=== PATIENT | female | born 1980 | race Caucasian/White ===

== ENCOUNTER 2018-08-31 00:53 | Emergency (ER) | payer OTHER ==
[2018-08-31 01:00] VITALS: RESP 18
[2018-08-31] MEDS ORDERED: SODIUM CHLORIDE 0.9% 1,000 ML IV ONE (01:26)
[2018-08-31] MEDS ORDERED: KETOROLAC 30 MG/ML 1 ML VIAL IVP STA (01:27)
[2018-08-31] MEDS ORDERED: LORazepam 1 MG TAB PO STA (01:43)
--- NOTE | 2018-08-31 02:29 | ED ---
Eye Problem HPI - General Chief complaint: Eye Problems Stated complaint: Vision Changes Time Seen by Provider: 08/31/18 01:14 Source: patient Mode of arrival: ambulatory Limitations: no limitations - History of Present Illness Initial comments: 38-year-old female patient presents to the emergency department today for evaluation of headache and confusion. Patient states that around 11:30 this evening she was reading something on Facebook when she started to being unable to comprehend what she was reading. Patient states that she could see the letters however she cannot make out what they meant. States that she has had ocular migraines in the past but her symptoms were different than this. Patient states he previously she had visual field disturbance however she denies having that with this headache. Patient states that the headache was a pressure behind her eyes. States that this started to resolve. States that she was nauseated but did not vomit. Patient states she has been having anxiety attacks and does feel somewhat anxious this evening. She denies any chest pain, shortness of breath, numbness, tingling, weakness or tremors. Denies any chance of . Denies any use of alcohol or drugs. Patient denies any recent rash, abdominal pain, diarrhea, constipation, back pain, hematuria, dysuria, urinary urgency, urinary frequency, headache, visual changes , or any other complaints. - Related Data Allergies Allergy/AdvReac Type Severity Reaction Status Date / Time No Known Allergies Allergy Verified 08/31/18 01:00 Review of Systems ROS Statement: Those systems with pertinent positive or pertinent negative responses have been documented in the HPI. ROS Other: All systems not noted in ROS Statement are negative. Past Medical History Past Medical History: No Reported History History of Any Multi-Drug Resistant Organisms: None Reported Past Surgical History: No Surgical Hx Reported Past Psychological History: Anxiety Smoking Status: Current every day smoker Past Alcohol Use History: None Reported, Occasional Past Drug Use History: None Reported General Exam Limitations: no limitations General appearance: alert, in no apparent distress, anxious, other (This is a well-developed, well-nourished adult female patient in no acute distress. Vital signs upon presentation are temperature 98.3F, pulse 66, respirations 18 , blood pressure 152/81, pulse ox 100% on room air.) Eye exam: Present: normal appearance, PERRL, EOMI. Absent: scleral icterus, conjunctival injection, periorbital swelling ENT exam: Present: normal exam, normal oropharynx, mucous membranes moist Respiratory exam: Present: normal lung sounds bilaterally. Absent: respiratory distress, wheezes, rales, rhonchi, stridor Cardiovascular Exam: Present: normal rhythm, tachycardia, normal heart sounds. Absent: systolic murmur, diastolic murmur, rubs, gallop, clicks GI/Abdominal exam: Present: soft, normal bowel sounds. Absent: distended, tenderness, guarding, rebound, rigid Neurological exam: Present: alert, oriented X3, CN II-XII intact Expanded Speech: Present: fluid speech Cranial nerves: EOM's Intact: Normal, Tongue Deviation: Normal, Nystagmus: Normal Cerebellar function: Finger to Nose: Normal Motor strength exam: RUE: 5, LUE: 5, RLE: 5, LLE: 5 Psychiatric exam: Present: normal affect, normal mood Skin exam: Present: warm, dry, intact, normal color. Absent: rash Course Vital Signs 08/31/18 00:57 Temperature 98.3 F Pulse Rate 66 Respiratory 18 Rate Blood Pressure 152/81 O2 Sat by Pulse 100 Oximetry Medical Decision Making - Lab Data Result diagrams: 08/31/18 02:00 08/31/18 02:00 Lab Results 08/31/18 08/31/18 08/31/18 Range/Units 02:00 02:00 02:00 WBC 8.0 (3.8-10.6) k/uL RBC 5.42 H (3.80-5.40) m/uL Hgb 12.6 (11.4-16.0) gm/dL Hct 40.7 (34.0-46.0) % MCV 75.2 L (80.0-100.0) fL MCH 23.2 L (25.0-35.0) pg MCHC 30.9 L (31.0-37.0) g/dL RDW 15.5 (11.5-15.5) % Plt Count 308 (150-450) k/uL Neutrophils % 59 % Lymphocytes % 31 % Monocytes % 6 % Eosinophils % 2 % Basophils % 0 % Neutrophils # 4.7 (1.3-7.7) k/uL Lymphocytes # 2.5 (1.0-4.8) k/uL Monocytes # 0.4 (0-1.0) k/uL Eosinophils # 0.2 (0-0.7) k/uL Basophils # 0.0 (0-0.2) k/uL Hypochromasia Moderate Microcytosis Slight Sodium 140 (137-145) mmol/L Potassium 4.5 (3.5-5.1) mmol/L Chloride 106 (98-107) mmol/L Carbon Dioxide 27 (22-30) mmol/L Anion Gap 7 mmol/L BUN 13 (7-17) mg/dL Creatinine 0.60 (0.52-1.04) mg/dL Est GFR (CKD-EPI)AfAm >90 (>60 ml/min/1.73 sqM) Est GFR (CKD-EPI)NonAf >90 (>60 ml/min/1.73 sqM) Glucose 90 (74-99) mg/dL Calcium 9.3 (8.4-10.2) mg/dL Total Bilirubin 0.3 (0.2-1.3) mg/dL AST 22 (14-36) U/L ALT 24 (9-52) U/L Alkaline Phosphatase 50 (38-126) U/L Total Creatine Kinase 50 (30-135) U/L CK-MB (CK-2) 0.4 (0.0-2.4) ng/mL CK-MB (CK-2) Rel Index 0.8 Troponin I <0.012 (0.000-0.034) ng/mL Total Protein 6.7 (6.3-8.2) g/dL Albumin 4.0 (3.5-5.0) g/dL Urine Color Urine Appearance (Clear) Urine pH (5.0-8.0) Ur Specific [place] (1.001-1.035) Urine Protein (Negative) Urine Glucose (UA) (Negative) Urine Ketones (Negative) Urine Blood (Negative) Urine Nitrite (Negative) Urine Bilirubin (Negative) Urine Urobilinogen (<2.0) mg/dL Ur Leukocyte Esterase (Negative) Urine HCG, Qual (Not Detectd) Urine Opiates Screen (NotDetected) Ur Oxycodone Screen (NotDetected) Urine Methadone Screen (NotDetected) Ur Propoxyphene Screen (NotDetected) Ur Barbiturates Screen (NotDetected) U Tricyclic Antidepress (NotDetected) Ur Phencyclidine Scrn (NotDetected) Ur Amphetamines Screen (NotDetected) U Methamphetamines Scrn (NotDetected) U Benzodiazepines Scrn (NotDetected) Urine Cocaine Screen (NotDetected) U Marijuana (THC) Screen (NotDetected) 08/31/18 08/31/18 Range/Units 02:00 02:00 WBC (3.8-10.6) k/uL RBC (3.80-5.40) m/uL Hgb (11.4-16.0) gm/dL Hct (34.0-46.0) % MCV (80.0-100.0) fL MCH (25.0-35.0) pg MCHC (31.0-37.0) g/dL RDW (11.5-15.5) % Plt Count (150-450) k/uL Neutrophils % % Lymphocytes % % Monocytes % % Eosinophils % % Basophils % % Neutrophils # (1.3-7.7) k/uL Lymphocytes # (1.0-4.8) k/uL Monocytes # (0-1.0) k/uL Eosinophils # (0-0.7) k/uL Basophils # (0-0.2) k/uL Hypochromasia Microcytosis Sodium (137-145) mmol/L Potassium (3.5-5.1) mmol/L Chloride (98-107) mmol/L Carbon Dioxide (22-30) mmol/L Anion Gap mmol/L BUN (7-17) mg/dL Creatinine (0.52-1.04) mg/dL Est GFR (CKD-EPI)AfAm (>60 ml/min/1.73 sqM) Est GFR (CKD-EPI)NonAf (>60 ml/min/1.73 sqM) Glucose (74-99) mg/dL Calcium (8.4-10.2) mg/dL Total Bilirubin (0.2-1.3) mg/dL AST (14-36) U/L ALT (9-52) U/L Alkaline Phosphatase (38-126) U/L Total Creatine Kinase (30-135) U/L CK-MB (CK-2) (0.0-2.4) ng/mL CK-MB (CK-2) Rel Index Troponin I (0.000-0.034) ng/mL Total Protein (6.3-8.2) g/dL Albumin (3.5-5.0) g/dL Urine Color Colorless Urine Appearance Clear (Clear) Urine pH 7.0 (5.0-8.0) Ur Specific [place] 1.007 (1.001-1.035) Urine Protein Negative (Negative) Urine Glucose (UA) Negative (Negative) Urine Ketones Negative (Negative) Urine Blood Negative (Negative) Urine Nitrite Negative (Negative) Urine Bilirubin Negative (Negative) Urine Urobilinogen <2.0 (<2.0) mg/dL Ur Leukocyte Esterase Negative (Negative) Urine HCG, Qual Not Detected (Not Detectd) Urine Opiates Screen Not Detected (NotDetected) Ur Oxycodone Screen Not Detected (NotDetected) Urine Methadone Screen Not Detected (NotDetected) Ur Propoxyphene Screen Not Detected (NotDetected) Ur Barbiturates Screen Not Detected (NotDetected) U Tricyclic Antidepress Not Detected (NotDetected) Ur Phencyclidine Scrn Not Detected (NotDetected) Ur Amphetamines Screen Not Detected (NotDetected) U Methamphetamines Scrn Not Detected (NotDetected) U Benzodiazepines Scrn Not Detected (NotDetected) Urine Cocaine Screen Not Detected (NotDetected) U Marijuana (THC) Screen Not Detected (NotDetected) - EKG Data -: EKG Interpreted by Me EKG Comments: EKG obtained at 03 100 so sinus bradycardia with a ventricular rate of 51, LA interval 190, QRS duration 94, QTC 454, QTC 418. No evidence of ST elevation or depression. - Radiology Data Radiology results: report reviewed, image reviewed CT of the head without contrast was obtained. Report was reviewed in its entirety. Impression by Dr. Renteria shows no acute intracranial process identified. Disposition Clinical Impression: Headache Disposition: HOME SELF-CARE Condition: Good Instructions (If sedation given, give patient instructions): Acute Headache (ED ) Additional Instructions: Follow-up with neurologist for further evaluation. Follow up with your primary care physician for recheck in 1-2 days. Return to the emergency department for any new, worsening, or concerning symptoms. Is patient prescribed a controlled substance at d/c from ED?: No Referrals: Willem Mackey MD [Primary Care Provider] - 1-2 days Zo Kirby MD [Medical Doctor] - 1-2 days Time of Disposition: 04:25
--- NOTE | 2018-08-31 02:41 | CT ---
EXAM: CT Head Without Intravenous Contrast CLINICAL HISTORY: altered mental status TECHNIQUE: Axial computed tomography images of the head/brain without intravenous contrast. CTDI is 49.1 mGy and DLP is 1209.4 mGy-cm. This CT exam was performed using one or more of the following dose reduction techniques: automated exposure control, adjustment of the mA and/or kV according to patient size, and/or use of iterative reconstruction technique. COMPARISON: No relevant prior studies available. FINDINGS: Brain: Unremarkable. No hemorrhage. No significant white matter disease. No edema. Ventricles: Unremarkable. No ventriculomegaly. Bones/joints: There is incidental benign-appearing hypertrophic changes involving the calvarium adjacent to the coronal suture at the midline anterior vertex. No acute fracture. Soft tissues: Unremarkable. Sinuses: Minimal mucosal thickening or small retention cyst or polyp involving the inferior medial right maxillary sinus is partially visualized a retention cyst or polyp is noted involving the anterior right maxillary sinus. The paranasal sinuses are otherwise unremarkable. Mastoid air cells: Unremarkable as visualized. No mastoid effusion. IMPRESSION: No acute intracranial process identified.
[2018-08-31 03:48] LABS: Appearance,Urine Clear (Clear); Bilirubin,Urine Negative (Negative); Blood,Urine Negative (Negative); Color,Urine Colorless; Glucose,Urine (UA) Negative (Negative); Ketones,Urine Negative (Negative); Leukocyte Esterase,Urine Negative (Negative); Nitrite,Urine Negative (Negative); Protein,Urine Negative (Negative); Specific Gravity,Urine 1.007 (1.001-1.035); Urobilinogen,Urine <2.0 mg/dL (<2.0)
[2018-08-31 03:49] LABS: Basophils % (A) 0 %; Eosinophils # (A) 0.2 k/uL (0-0.7); Eosinophils % (A) 2 %; HCT 40.7 % (34.0-46.0); HGB 12.6 gm/dL (11.4-16.0); Hypochromasia Moderate; Lymphocytes # (A) 2.5 k/uL (1.0-4.8); Lymphocytes % (A) 31 %; MCH 23.2 pg (25.0-35.0); MCHC 30.9 g/dL (31.0-37.0); MCV 75.2 fL (80.0-100.0); Mean Platelet Volume 6.3; Microcytosis Slight; Monocytes # (A) 0.4 k/uL (0-1.0); Monocytes % (A) 6 %; Neutrophils # (A) 4.7 k/uL (1.3-7.7); Neutrophils % (A) 59 %; Platelet Count 308 k/uL (150-450); RBC 5.42 m/uL (3.80-5.40); RDW 15.5 % (11.5-15.5)
[2018-08-31 03:58] LABS: ALT 24 U/L (9-52); AST 22 U/L (14-36); Alkaline Phosphatase 50 U/L (38-126); Anion Gap 7 mmol/L; Blood Urea Nitrogen 13 mg/dL (7-17); Calcium 9.3 mg/dL (8.4-10.2); Carbon Dioxide 27 mmol/L (22-30); Chloride 106 mmol/L (98-107); Glucose 90 mg/dL (74-99); Potassium 4.5 mmol/L (3.5-5.1); Sodium 140 mmol/L (137-145); Total Bilirubin 0.3 mg/dL (0.2-1.3); Total Protein 6.7 g/dL (6.3-8.2)
[2018-08-31 04:07] LABS: Amphetamine Screen,Urine Not Detected (NotDetected); Barbiturate Screen,Urine Not Detected (NotDetected); Benzodiazepines Screen,Urine Not Detected (NotDetected); Cocaine Screen,Urine Not Detected (NotDetected); Methadone Screen, Urine Not Detected (NotDetected); Opiate Screen,Urine Not Detected (NotDetected); Oxycodone Screen, Urine Not Detected (NotDetected); Phencyclidine Screen,Urine Not Detected (NotDetected); Tricyclic Antidepressant,Urine Not Detected (NotDetected); Urn Cannabinoid Scrn Not Detected (NotDetected)
[2018-08-31 04:09] LABS: Creatine Kinase 50 U/L (30-135)
[2018-08-31 04:22] LABS: Creatine Kinase MB 0.4 ng/mL (0.0-2.4); Troponin I <0.012 ng/mL (0.000-0.034)
[2018-08-31 04:44] VITALS: BP 128/91; PULSE 52; TEMP 98.5
== END 2018-08-31 04:33 | disposition home or self-care (01) ==
LOC: EC 00:53
DX: R51 Headache (principal); F41.9 Anxiety disorder, unspecified; R41.0 Disorientation, unspecified; H53.9 Unspecified visual disturbance; F17.200 Nicotine dependence, unspecified, uncomplicated; Z86.69 Personal history of other diseases of the nervous system and sense organs
CPT/HCPCS: 36415; 93005; 80053; 82550; 82553; 84484; 85025; 81003; 81025; 80306; 70450; 99284; 96374; 96361 ×2; J1885

== ENCOUNTER → 2021-04-22 | Outpatient (CLI) | payer OTHER ==
--- NOTE | 2021-04-22 11:32 | XR ---
EXAMINATION TYPE: XR ankle limited RT, XR foot limited RT DATE OF EXAM: 04/22/2021 CLINICAL HISTORY: Pain after fall injury TECHNIQUE: Frontal and lateral images of the right ankle and foot are obtained. COMPARISON: None. FINDINGS: There is no acute fracture/dislocation evident in the right ankle. The ankle mortise appe ars within normal limits. Moderate size inferior calcaneal spur is present. The overlying soft tissue appears unremarkable. There is no acute fracture or dislocation evident in the right foot. The joint spaces in the right f oot are preserved. Overlying soft tissue is unremarkable. IMPRESSION: There is no acute fracture or dislocation in the right ankle or foot.
== END | disposition home or self-care (01) ==
LOC: RADXRMAIN 11:12
PROVIDERS: ATTEND Internal Medicine
DX: M25.571 Pain in right ankle and joints of right foot (principal); M79.671 Pain in right foot; S99.911A Unspecified injury of right ankle, initial encounter; S99.921A Unspecified injury of right foot, initial encounter

== ENCOUNTER 2021-09-18 23:09 | Emergency (ER) | payer OTHER ==
[2021-09-18 23:16] VITALS: BP 127/83; PULSE 58; RESP 18; TEMP 98.8
--- NOTE | 2021-09-18 23:37 | XR ---
EXAMINATION TYPE: XR hand complete RT DATE OF EXAM: 09/18/2021 COMPARISON: NONE HISTORY: Thumb injury. Pain TECHNIQUE: 3 view FINDINGS: Metacarpals are intact. Carpal bones are intact. I see no fracture nor dislocation. The yoni mb appears intact. IMPRESSION: Negative right hand exam. No fracture.
--- NOTE | 2021-09-18 23:45 | ED ---
Upper Extremity HPI - General Chief Complaint: Extremity Injury, Upper Stated Complaint: thumb injury Time Seen by Provider: 09/18/21 23:20 Source: patient, RN notes reviewed Mode of arrival: ambulatory Limitations: no limitations - History of Present Illness Initial Comments: This is a pleasant, [id number] 41-year-old female who injured her right thumb when she was walking up stairs earlier tonight. Patient states she tripped forward handout. She ended up bending her right thumb backwards. Patient complaining of pain near the first metacarpal phalangeal joint area. No paresthesias. No other injuries. No distal or proximal abnormalities. Patient actually stating that the pain is not bad and she isn't moving it or the area is palpated. Rest alleviates the pain. No radiation. No headache, no fever or chills, no changes in vision or hearing, no sore throat or difficulty with speech, no neck pain, no chest pain or shortness of breath, no abdominal pain, no nausea or vomiting, no changes in urination or bowel movements, no numbness or tingling, , no skin rashes or lesions. MD Complaint: Injury to:: right - Related Data Previous Rx's Medication Instructions Recorded Acetaminophen [Tylenol] 500 mg PO Q4-6H PRN #24 tab 09/18/21 Allergies Allergy/AdvReac Type Severity Reaction Status Date / Time No Known Allergies Allergy Verified 09/18/21 23:16 Review of Systems ROS Statement: Those systems with pertinent positive or pertinent negative responses have been documented in the HPI. ROS Other: All systems not noted in ROS Statement are negative. Past Medical History Past Medical History: No Reported History History of Any Multi-Drug Resistant Organisms: None Reported Past Surgical History: No Surgical Hx Reported Past Psychological History: Anxiety Smoking Status: Never smoker Past Alcohol Use History: Occasional Past Drug Use History: None Reported General Exam - General Exam Comments Initial Comments: Healthy 41-year-old female in no distress Limitations: no limitations General appearance: alert, in no apparent distress Head exam: Present: atraumatic, normocephalic, normal inspection Eye exam: Present: normal appearance, EOMI ENT exam: Present: normal exam Neck exam: Present: normal inspection, full ROM Respiratory exam: Present: normal lung sounds bilaterally. Absent: respiratory distress, wheezes, rales, rhonchi, stridor Cardiovascular Exam: Present: regular rate, normal rhythm, normal heart sounds. Absent: systolic murmur, diastolic murmur, rubs, gallop, clicks Right Hand Wrist exam: Present: normal inspection, full ROM, tenderness, other (Patient has tenderness in ligament laxity to the ulnar collateral ligament of the first MCP joint. No break in skin integrity. No erythema. No crepitus.). Absent: swelling, abrasion, laceration, ecchymosis, deformity, crepitus, dislocation, erythema, amputation, nail avulsion, subungual hematoma Neuro motor exam: Present: wrist extension intact, thumb opposition intact, thumb IP flexion intact, thumb adduction intact, fingers 2-5 abduction intact Neurosensory exam: Present: 2-point discrimination, radial nerve intact Vascular: Present: normal capillary refill. Absent: vascular compromise, Pallo, pulse deficit radial art, pulse deficit ulnar art Course Vital Signs 09/18/21 23:14 Temperature 98.8 F Pulse Rate 58 L Respiratory 18 Rate Blood Pressure 127/83 O2 Sat by Pulse 99 Oximetry Procedures - Orthopedic Splinting/Casting Injury #1 Side: right Upper Extremity Immobilizer: thumb spica (Right thumb, OCL) Additional Comments: Right thumb spica splint, applied by me, distal neurovascular status intact both pre-and post-application. Medical Decision Making - Medical Decision Making Patient presents symptomology consistent with a gamekeeper's thumb on the right hand. Ligament laxity noted. No evidence of osseous abnormality on x-ray as read by me. Thumb spica splint applied. Orthopedic follow-up given. Patient was in no pain after splinting. Neurovascular status intact. Discussed treatment plan. Discussed follow-up. All questions answered. Patient was told to return to the ER for any signs or symptoms worsen. Told to return immediately if any other problems arise. All questions answered. Treatment plan discussed. Patient in agreement Every effort has been made to ensure accuracy of this dictation. However, due to the limitations of electronic medical records and dictation devices, errors in charting still occur. Disposition Clinical Impression: Gamekeeper's thumb of right hand Disposition: HOME SELF-CARE Condition: Good Instructions (If sedation given, give patient instructions): Splint Care (ED), Hand Sprain (ED) Additional Instructions: Follow-up with the hand surgeon as directed, call in the morning for an appointment. Follow-up with your regular physician as directed. Return to the ER immediately if any symptoms worsen, new symptoms arise, or any other problems develop. Keep the splint on until orthopedic follow-up. Use paht-[id number] acetaminophen as needed for pain control. Prescriptions: Acetaminophen [Tylenol] 500 mg PO Q4-6H PRN #24 tab PRN Reason: Pain Is patient prescribed a controlled substance at d/c from ED?: No Referrals: Jeff Anthony DO [Doctor of Osteopathic Medicine] - 1-2 days Time of Disposition: 23:45
== END 2021-09-19 00:27 | disposition home or self-care (01) ==
LOC: EC 23:09
DX: S63.641A Sprain of metacarpophalangeal joint of right thumb, initial encounter (principal); W01.0XXA Fall on same level from slipping, tripping and stumbling without subsequent striking against object, initial encounter
CPT/HCPCS: 29125; 99284

== ENCOUNTER → 2021-10-03 | Outpatient (CLI) | payer OTHER ==
--- NOTE | 2021-10-08 13:31 | MM ---
Reason for exam: screening (asymptomatic). Last mammogram was performed 8 years and 2 months ago. History: Patient is postmenopausal. Benign left mammotome panel of the left breast, August 26, 2013. Took hormonal contraceptives beginning at age 33. Physical Findings: A clinical breast exam by your physician is recommended on an annual basis and results should be correlated with mammographic findings. MG Screening Mammo w CAD Bilateral CC and MLO view(s) were taken. Prior study comparison: August 10, 2013, [facility] DIGITAL LEFT BREAST MAMMOGRAM w/CAD. July 08, 2013, bilateral digital screening mammo w/CAD. There are scattered fibroglandular densities. There are benign appearing round calcifications in the left breast. Previous mammotome biopsy in the left breast at chronic nodularity. There is no new dominant lesion. ASSESSMENT: Benign, BI-RAD 2 RECOMMENDATION: Routine screening mammogram of both breasts in 1 year.
== END | disposition home or self-care (01) ==
LOC: RADMAMWWP 09:12
PROVIDERS: ATTEND Internal Medicine
DX: Z12.31 Encounter for screening mammogram for malignant neoplasm of breast (principal); Z78.0 Asymptomatic menopausal state
CPT/HCPCS: 77067

== ENCOUNTER → 2021-10-11 | Outpatient (CLI) | payer OTHER ==
--- NOTE | 2021-10-12 02:16 | MR ---
EXAMINATION TYPE: MR hand RT wo con DATE OF EXAM: 10/11/2021 COMPARISON: None HISTORY: Rt thumb pain/injury. Multiplanar multiecho imaging of the right hand without contrast. The metacarpals are intact. Phalanges appear intact. I see no fracture. No evidence of any bone edema . There is a small degenerative cyst in the distal scaphoid. Small degenerative cyst in the proximal trapezium. The first carpometacarpal joint is intact. There is mild subcutaneous edema around the pro ximal phalanx of the thumb. There is mild edema also around the head of the first metacarpal. Flexor tendon of the thumb appears intact. IMPRESSION: Mild soft tissue edema around the thumb. No fracture seen. No evidence of ligamentous tear. Mild dege nerative cyst noted in the scaphoid and trapezium.
== END | disposition home or self-care (01) ==
LOC: RADMRIMAIN 20:29
PROVIDERS: ATTEND Orthopaedic Surgery Hand Surgery
DX: S69.91XA Unspecified injury of right wrist, hand and finger(s), initial encounter (principal); M85.641 Other cyst of bone, right hand

== ENCOUNTER 2021-10-24 07:49 | Day surgery (SDC) | payer OTHER ==
--- NOTE | 2021-10-21 10:29 | P.HPOR ---
History of Present Illness H&P Date: 10/21/21 Chief Complaint: Right thumb UCL tear objective: This is a 41 year old female that presents today for follow up evaluation regarding a right thumb injury that occurred on 09/18/21. Patient works at [employer] and was fixing a mop wringer when she suddenly hyperextended her thumb and heard a pop. Recently 2 months ago she was started on a new medication for migraines, Trokendi and has noticed since starting it she has trouble feeling any pain in her hands and feet. She states she did not even realize that her thumb was being hyperextended until a co-worker saw her thumb bent backwards. She has had swelling around the thumb MP joint since. MRI was ordered at her last visit. She states she is now having pain daily at work with the thumb and notices her thumb is very unstable with any pinch or grasp. Physical Examination: RUE: AIN/PIN/Radial/Ulnar/Median motor intact. Radial/Ulnar/Median SILT. 2+/4 Radial/Ulnar pulses palpated. 5/5 APB, 5/5 FDI. Negative Finkelsteins, negative CMC grind, negative Durkan's compression. 4mm 2 point discrimination in all digits. Improved swelling/bruising around thumb UCL with laxity with radial stress to the thumb MP joint with possible palpable stener lesion. Imaging: MRI of the right hand interpreted in office demonstrate complete tear of the right thumb UCL ligament off ot the metacarpal origin with joint incongruity an surround soft tissue and jo ann edema appreciated on STIR imaging. Radial collateral visualized but appears attenuated on imaging. Impression: 1.) Right thumb UCL tear 2.) Right thumb RCL sprain/partial tear Plan: Diagnosis and treatment options were discussed with the patient. Due to MRI findings and physical exam findings of gross instability I recommend surgical intervention with right thumb UCL repair/reconstruction. Risks and benefit of surgery including bleeding, infection, damage to surrounding tissue, need for further surgery, residual numbness were discussed and the patient wished to go forward with surgery. Patient is agreeable with this plan and wishes to proceed with surgery. -Jeff Anthony DO Orthopedic Hand/Upper Extremity Surgeon Past Medical History Past Medical History: No Reported History History of Any Multi-Drug Resistant Organisms: None Reported Past Surgical History: No Surgical Hx Reported Past Psychological History: Anxiety Smoking Status: Never smoker Past Alcohol Use History: Occasional Past Drug Use History: None Reported Medications and Allergies Home Medications Medication Instructions Recorded Confirmed Type Acetaminophen [Tylenol] 500 mg PO Q4-6H PRN #24 tab 09/18/21 Rx Allergies Allergy/AdvReac Type Severity Reaction Status Date / Time No Known Allergies Allergy Verified 09/18/21 23:16 Physical Examination Osteopathic Statement: *. No significant issues noted on an osteopathic structu ral exam other than those noted in the History and Physical/Consult.
[2021-10-22 14:46] VITALS: BMI 35.7
[~2021-10-24 07:49] MED LIST: DEXAMETHASONE SOD PHOSPHATE 4 MG/ML 1 ML VIAL IV ONE; HYDROmorphone 0.5 MG/0.5 ML SYRINGE IVP PRN; KETOROLAC 15 MG/ML 1 ML VIAL IVP SCH; LACTATED RINGERS 1,000 ML IV SCH; LIDOCAINE 1% (10MG/ML) FOR IV START INTRADERMA PRN; METOCLOPRAMIDE 5 MG/ML 2 ML VIAL IVP PRN; MIDAZOLAM 2 MG/2 ML VIAL IV PRN; ONDANSETRON 4 MG/2 ML VIAL IVP ONE
[2021-10-24 08:29] VITALS: TEMP 98
[2021-10-24] MEDS ORDERED: fentaNYL (PF) 50 MCG/ML 2 ML AMP IV ONE (08:58)
[2021-10-24 09:14] LABS: Basophils % (A) 1 %; Eosinophils # (A) 0.1 k/uL (0-0.7); Eosinophils % (A) 2 %; HCT 47.3 % (34.0-46.0); HGB 15.8 gm/dL (11.4-16.0); Lymphocytes # (A) 1.8 k/uL (1.0-4.8); Lymphocytes % (A) 34 %; MCH 29.6 pg (25.0-35.0); MCHC 33.4 g/dL (31.0-37.0); MCV 88.6 fL (80.0-100.0); Mean Platelet Volume 6.8; Monocytes # (A) 0.2 k/uL (0-1.0); Monocytes % (A) 4 %; Neutrophils % (A) 57 %; Platelet Count 325 k/uL (150-450); RBC 5.33 m/uL (3.80-5.40); RDW 13.1 % (11.5-15.5); WBC 5.3 k/uL (3.8-10.6)
--- NOTE | 2021-10-24 09:49 | P.ANPRN ---
Procedure Note - Anesthesia - Nerve Block Performed Right Axillary Single Time Out Performed: Yes ([id number]) Date of Procedure: 10/24/21 Procedure Start Time: 08:59 Procedure Stop Time: 09:08 Location of Patient: PreOp Indication: Acute Post-Operative Pain, Requested by Surgeon Specifically requested for management of pain by DrKennedy: Bart Hall Sedation Type: Sedate with meaningful contact maintained Preparation: Sterile Prep Position: Supine Catheter: None Needle Types: Pajunk Needle Gauge: 21 Ultrasound used to visualize needle placement: Yes Ultrasound used to observe medication spread: Yes Injectate: 0.5% Ropivacaine (see comment for volume) (30cc +10cc nacl pf. 10cc at each [place], radial median ulnar) Blood Aspirated: No Pain Paresthesia on Injection Noted: No Resistance on Injection: Normal Image Stored and Saved: Yes Events: Uneventful and Well Tolerated
[2021-10-24] MEDS ORDERED: PROPOFOL 10 MG/ML 20 ML VIAL IV ONE (10:17)
[2021-10-24] MEDS ORDERED: LIDOCAINE 1% INJ 10MG/ML (20 ML MDV) ONE (10:17)
[2021-10-24] MEDS ORDERED: fentaNYL (PF) 50 MCG/ML 2 ML AMP ONE (10:17)
[2021-10-24] MEDS ORDERED: ROPIVACAINE 5 MG/ML 30 ML VIAL ONE (10:17)
[2021-10-24] MEDS ORDERED: SODIUM CHLORIDE 0.9% (PF) 10 ML VIAL ONE (10:17)
[2021-10-24 12:53] VITALS: RESP 18
[2021-10-24 13:15] VITALS: BP 115/77; PULSE 59
--- NOTE | 2021-10-24 17:35 | P.OP ---
Date of Procedure: 10/24/21 Preoperative Diagnosis: Right thumb MCP joint ulnar collateral ligament rupture Postoperative Diagnosis: Right thumb MCP joint ulnar collateral ligament rupture Procedure(s) Performed: Right thumb MCP joint ulnar collateral ligament rupture repair Implants: Arthrex 3.5mm SwiveLock suture anchor x 2. Anesthesia: MOLLYA, regional Surgeon: Jeff Anthony Estimated Blood Loss (ml): 5 Pathology: none sent Condition: stable Disposition: PACU Description of Procedure: This is a 41 year old female who presents today after sustaining a right thumb MCP UCL rupture while at work using a mop bucket. MRI confirmed rupture of the proximal origin of the right thumb UCL ligament with gross instability on physical exam. She presents today for surgical intervention. Risks and benefits of surgery were discussed with the patient including bleeding, damage to surroun ding tissue, infection, need for further surgery as well as risks of anesthesia including pulmonary embolism and even and the patient wished to proceed with surgical intervention. The patient was seen in the pre-operative area by myself. Consent and H&P were completed and updated. The correct extremity was marked in the pre-operative area by myself and all other questions were answered. Operative Narrative: The patient was brought to the operating room by the department of anesthesia. They remained on the portable stretcher and a rolling hand table was brought to the side of the operative extremity. Pre-operative time out was performed indicating the correct patient, procedure and laterality. All in the room agreed. Pre-operative antibiotics were given prior to skin incision. The patient was then drifted off to sleep by the department of anesthesia. A nonsterile tourniquet was then applied to the operative extremity and the right upper extremity was then prepped and draped in normal sterile fashion. The operative extremity was the exsanguinated with an esmarch bandage and the tourniquet was inflated to 250mmHg. After appropriate anesthesia, the thumb was stressed which re-demonstrated greater than 30 degrees of laxity when stressing the UCL with no firm end point. Longitudinal incision was made on the ulnar aspect of the thumb MP joint with a 15 blade scalpel. Blunt dissection was taken down through subcutaneous tissues and branches of the superficial radial nerve were identified and protected. Heiss retractor was placed. The adductor aponeurosis was identified and then longitudinally split with a scalpel. Underlying capsule was from the adductor aponeurosis which revealed tearing of the UCL ligament off of the metacarpal origin with extensive scar tissue build up since the injury was now over 1 month out. A K-wire was then inserted at the UCL origin of the metacarpal head and inserted to the laser line. Over drill was then performed until positive stop was hit. A 3.5 mm Arthrex Swivel lock with Fibertape was inserted . The Fibertape was then passed through the proximal detatched portion of the UCL ligament with a free needle in a horizontal mattress fashion reattaching the [place] collateral ligament down to bone. The distal portion of the UCL was found to be intact at its proximal phalanx insertion. Another K- wire was then inserted just distal to the intact UCL insertion at the proximal phalanx. Over drill was performed to a positive stop. The remaining length of the Fibertape was then inserted into bone with a 3.5 mm Arthrex Swivel lock suture anchor with the thumb MP joint held in 30 degrees of flexion with good purchase to complete the internal brace portion of the procedure. Stability both radially and ulnarly was checked and the thumb was stable with firm end points. MP flexion was tested and appropriate tension was appreciated. The wound was then irrigated with sterile saline. Adductor aponeurosis was closed with a 4-0 Monocryl suture followed by skin closure with several interrupted subcutaneous sutures followed by a running subcuticular stitch followed by exofin skin glue. 4x4s were placed on skin and a thumb spica splint was applied. Tourniquet was let down and all digits had immediate perfusion. The patient was then woken by the department of anesthesia and transferred to PACU in stable condition. -Jeff Anthony DO Orthopedic Hand/Upper Extremity Surgeon
== END 2021-10-24 13:38 | disposition home or self-care (01) ==
LOC: OR 07:49
PROVIDERS: ATTEND Orthopaedic Surgery Hand Surgery
DX: S53.32XA Traumatic rupture of left ulnar collateral ligament, initial encounter (principal); X50.1XXA Overexertion from prolonged static or awkward postures, initial encounter; Z87.891 Personal history of nicotine dependence; G43.909 Migraine, unspecified, not intractable, without status migrainosus; Z79.899 Other long term (current) drug therapy
CPT/HCPCS: 26540; 64415; 76942; 85025; C1713; J2250; J1100; J0690; J2405; J2001; J3010; J2795; J2704

== ENCOUNTER 2022-05-10 22:53 | Observation (INO) | payer OTHER ==
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
[2022-05-10] MEDS ORDERED: SODIUM CHLORIDE 0.9% 1,000 ML IV STA (23:32)
[2022-05-10] MEDS ORDERED: SODIUM CHLORIDE 0.9% 500 ML 500 ML IV STA (23:32)
[2022-05-10 23:33] LABS: Appearance,Urine Clear (Clear); Bilirubin,Urine Negative (Negative); Blood,Urine Negative (Negative); Color,Urine Colorless; Glucose,Urine (UA) Negative (Negative); Ketones,Urine Negative (Negative); Leukocyte Esterase,Urine Negative (Negative); Nitrite,Urine Negative (Negative); Protein,Urine Negative (Negative); Specific Gravity,Urine 1.002 (1.001-1.035); Urobilinogen,Urine <2.0 mg/dL (<2.0)
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
[2022-05-11 00:05] LABS: Basophils % (A) 1 %; Eosinophils # (A) 0.1 k/uL (0-0.7); Eosinophils % (A) 1 %; HCT 41.8 % (34.0-46.0); HGB 14.2 gm/dL (11.4-16.0); Lymphocytes # (A) 1.9 k/uL (1.0-4.8); Lymphocytes % (A) 25 %; MCH 29.1 pg (25.0-35.0); MCV 85.5 fL (80.0-100.0); Mean Platelet Volume 7.7; Monocytes # (A) 0.3 k/uL (0-1.0); Monocytes % (A) 4 %; Neutrophils # (A) 5.2 k/uL (1.3-7.7); Neutrophils % (A) 67 %; Platelet Count 278 k/uL (150-450); RBC 4.88 m/uL (3.80-5.40); RDW 12.9 % (11.5-15.5); WBC 7.7 k/uL (3.8-10.6)
[2022-05-11 00:11] LABS: Partial Thromboplastin Time 26.8 sec (22.0-30.0)
[2022-05-11 00:13] LABS: ALT 19 U/L (4-34); AST 22 U/L (14-36); African American GFR (CKD) >90 (>60 ml/min/1.73 sqM); Albumin 4.3 g/dL (3.5-5.0); Alcohol 68 mg/dL; Alkaline Phosphatase 62 U/L (38-126); Anion Gap 15 mmol/L; Blood Urea Nitrogen 13 mg/dL (7-17); Calcium 9.4 mg/dL (8.4-10.2); Carbon Dioxide 18 mmol/L (22-30); Chloride 109 mmol/L (98-107); Glucose 96 mg/dL (74-99); Non-African American GFR(CKD) >90 (>60 ml/min/1.73 sqM); Potassium 3.4 mmol/L (3.5-5.1); Sodium 142 mmol/L (137-145); Total Bilirubin 0.2 mg/dL (0.2-1.3); Total Protein 6.7 g/dL (6.3-8.2)
[2022-05-11 00:14] LABS: Amphetamine Screen,Urine Not Detected (NotDetected); Benzodiazepines Screen,Urine Not Detected (NotDetected); Cocaine Screen,Urine Not Detected (NotDetected); Opiate Screen,Urine Not Detected (NotDetected); Phencyclidine Screen,Urine Not Detected (NotDetected); Urn Cannabinoid Scrn Not Detected (NotDetected)
[2022-05-11 00:15] LABS: Barbiturate Screen,Urine Not Detected (NotDetected); Methadone Screen, Urine Not Detected (NotDetected); Oxycodone Screen, Urine Not Detected (NotDetected); Tricyclic Antidepressant,Urine Not Detected (NotDetected)
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
[2022-05-11] MEDS ORDERED: MORPHINE SULFATE 4 MG/ML SYRINGE IV PRN (02:21)
[2022-05-11] MEDS ORDERED: NALOXONE 0.4 MG/ML 1 ML VIAL IV PRN (02:21)
[2022-05-11] MEDS ORDERED: ONDANSETRON 4 MG/2 ML VIAL IVP PRN (02:21)
[2022-05-11] MEDS ORDERED: SODIUM CHLORIDE 0.9% 1,000 ML IV SCH ×2 (02:30→04:15)
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
[2022-05-11] MEDS ORDERED: PROPOFOL 10 MG/ML 20 ML VIAL IV ONE (03:27)
[2022-05-11] MEDS ORDERED: SUCCINYLCHOLINE CHLORIDE 200 MG/10 ML VIAL IV ONE (03:27)
[2022-05-11] MEDS ORDERED: fentaNYL (PF) 50 MCG/ML 2 ML AMP ONE (03:27)
[2022-05-11] MEDS ORDERED: LIDOCAINE 2% INJ 20 MG/ML (2 ML VIAL) ONE (03:27)
[2022-05-11] MEDS ORDERED: MIDAZOLAM 2 MG/2 ML VIAL ONE (03:27)
[2022-05-11] MEDS ORDERED: IV FLUID CONTINUATION 1,000 ML IV ONE (03:32)
[2022-05-11] MEDS ORDERED: HYDROcodone/APAP 5-325MG 1 EACH TAB PO PRN (04:10)
--- NOTE | 2022-05-11 04:10 | P.OP ---
Date of Procedure: 05/11/22 Preoperative Diagnosis: Hematoma left thigh Postoperative Diagnosis: Hematoma left thigh Procedure(s) Performed: Evacuation of hematoma left thigh with control of bleeding Anesthesia: REJI Surgeon: Fanny Carter Estimated Blood Loss (ml): 300 Pathology: none sent Condition: stable Disposition: PACU Indications for Procedure: Patient presented with an expanding hematoma the left thigh and contrast within the hematoma on computed tomography scan concerning for ongoing bleeding Description of Procedure: Patient's taken the OR where she is prepped and draped in the usual sterile manner under general endotracheal anesthetic. An skin incision is made over the anterior surface of the left thigh based on palpation and CT findings. Large hematoma cavity was entered. Large amount of clot was evacuated. Blood loss was felt to be 300 mL's. The wound was irrigated. There is noted to be a perforating vessel from the anterior surface of the muscle which is sutured with 3-0 Vicryl. Wound is examined and no further ongoing bleeding is noted. A small stab incision was made and a drain was placed. The subcutaneous tissues were closed with 3-0 Vicryl. The skin was closed with vianney. A sterile dressing was applied. She tolerated the procedure without difficulty and is taken to recovery room in satisfactory condition. According to or personnel, all counts were correct
[2022-05-11] MEDS: KETOROLAC 15 MG/ML 1 ML VIAL IVP SCH ×2 (07:53→12:34)
[2022-05-11 08:04] VITALS: RESP 16
[2022-05-11] MEDS ORDERED: PANTOPRAZOLE 40 MG/10 ML VIAL IV SCH (09:00)
[2022-05-11 13:17] VITALS: BP 111/54; PULSE 75; TEMP 97.2
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
== END 2022-05-11 16:52 | disposition home or self-care (01) ==
LOC: EC 22:53 → 6NMEDSUR 05-11 02:21
PROVIDERS: ADMIT Surgery; ATTEND Surgery
DX: S70.12XA Contusion of left thigh, initial encounter (principal); V43.52XA Car driver injured in collision with other type car in traffic accident, initial encounter; G43.909 Migraine, unspecified, not intractable, without status migrainosus; Z87.891 Personal history of nicotine dependence; Z79.899 Other long term (current) drug therapy
CPT/HCPCS: 96365; 99285; 36415; 86900; 86901; 80053; 84484; 85025; 85610; 85730; 86850; 81003; 81025; 80306; 80320; 72170; 71045; 73701; 72125; 70450; 71260; 74177; 10140; G0378; J2250; J0330; J0690; J3010; J1885; J2704; C9113; Q9967; J2001

== ENCOUNTER → 2023-07-01 | Outpatient (CLI) | payer OTHER ==
--- NOTE | 2023-07-02 09:40 | MM ---
Reason for Exam: Screening (asymptomatic). Last mammogram was performed 1 year(s) and 9 month(s) ago. Patient History: Menarche at age 10. First Full-Term at age 22. Postmenopausal. Hormonal Contraceptives, from age 33 until age 36. 08/26/2013, Benign Core Biopsy on the left side. Risk Values: Daniela 5 year model risk: 1.2%. NCI Lifetime model risk: 10.4%. Prior Study Comparison: 07/08/2013 Bilateral Screening Mammogram, [facility]. 08/10/2013 Left Diagnostic Mammogram, [facility]. 10/03/2021 Bilateral Screening Mammogram, [facility]. Tissue Density: The breast tissue is almost entirely fat. Findings: Analyzed By CAD. Left breast biopsy clip. There is no suspicious group of microcalcifications or new suspicious mass. Overall Assessment: Benign, BI-RAD 2 Management: Screening Mammogram of both breasts in [address] [facility] will attempt to contact patient to return for supplemental views and ultrasound if indicated. Patient should continue monthly self-breast exams. A clinical breast exam by your physician is recommended on an annual basis. This exam should not preclude additional follow-up of suspicious palpable abnormalities. Note on Daniela scores and lifetime risk: 1. A Daniela score greater than 3% is considered moderate risk. If this is the case, consider specialist referral to assess eligibility for a risk reducing agent. 2. If overall lifetime risk for the development of breast cancer is 20% or higher, the patient may qualify for future screening with alternating mammogram and breast MRI. Electronically signed and approved by: Bear Brice DO
== END | disposition home or self-care (01) ==
LOC: RADMAMWWP 07:20
PROVIDERS: ATTEND Family Medicine
DX: Z12.31 Encounter for screening mammogram for malignant neoplasm of breast (principal); Z78.0 Asymptomatic menopausal state
CPT/HCPCS: 77067